=== PATIENT | female | born 1995 | race African-American/Black ===

== ENCOUNTER 2016-06-20 00:33 | Emergency (ER) | payer OTHER ==
[2016-06-20 00:56] VITALS: TEMP 98.6; BMI 24.7
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
[2016-06-20] MEDS ORDERED: IBUPROFEN 600 MG TABLET (FP) PO STA (01:25)
[2016-06-20] MEDS ORDERED: IBUPROFEN 400 MG TABLET (FP) PO ONE (01:29)
[2016-06-20 01:59] LABS: BASOPHIL 0.6 % (0-2.0); EOSINOPHIL 6.6 % (0-4.5); MCH 29.7 pg (25.7-33.7); MCHC 33.2 g/dl (32.0-36.0); MEAN CELL VOLUME 89.3 fl (80-96); MEAN PLT VOLUME 8.4 fl (7.5-11.1); PLATELET COUNT 243 K/MM3 (134-434); WHITE BLOOD COUNT 7.4 K/mm3 (4.0-10.0)
[2016-06-20 02:53] VITALS: BP 112/76; PULSE 72
[2016-06-20 02:59] LABS: ALBUMIN 3.6 g/dl (3.4-5.0); AMYLASE 82 U/L (25-115); ANION GAP 9 (8-16); CALCIUM 8.2 mg/dL (8.5-10.1); CO2 29 mmol/L (21-32); CREATININE 0.7 mg/dL (0.55-1.02); GLUCOSE,RANDOM 72 mg/dL (74-106); SGOT/AST 9 U/L (15-37); SGPT/ALT 11 U/L (12-78)
[2016-06-20 03:01] LABS: ALK PHOS 78 U/L (45-117); BILIRUBIN,TOTAL 0.4 mg/dL (0.2-1.0); TOT PROT 7.1 g/dl (6.4-8.2)
[2016-06-20 03:04] LABS: TROPONIN I < 0.02 ng/ml (0.00-0.05)
--- NOTE | 2016-06-20 11:33 | EKG ---
Test Reason : Blood Pressure : / mmHG Vent. Rate : 077 BPM Atrial Rate : 077 BPM P-R Int : 146 ms QRS Dur : 074 ms QT Int : 390 ms P-R-T Axes : 057 057 048 degrees QTc Int : 441 ms NORMAL SINUS RHYTHM NORMAL ECG WHEN COMPARED WITH ECG OF 12-NOV-2015 16:35, NO SIGNIFICANT CHANGE WAS FOUND Confirmed by DAVID ORLANDO MD ([id number]) on 06/20/2016 11:33:25 AM Referred By: Confirmed By:DAVID ORLANDO MD
== END 2016-06-20 03:08 | disposition left against medical advice (07) ==
LOC: JER 00:33
DX: Z53.21 Procedure and treatment not carried out due to patient leaving prior to being seen by health care provider (principal); R00.2 Palpitations
CPT/HCPCS: 36415; 80053; 82150; 82550; 83690; 84484; 84703; 85025; 93005; 93010; 99283-25

== ENCOUNTER 2016-06-24 10:34 | Emergency (ER) | payer OTHER ==
[2016-06-24] MEDS ORDERED: CYCLOBENZAPRINE HCL 10 MG TABLET (FP) PO ONE (11:15)
[2016-06-24] MEDS ORDERED: IBUPROFEN 600 MG TABLET (FP) PO ONE ×2 (11:15→11:46)
[2016-06-24 11:21] VITALS: BMI 24.4
[2016-06-24] MEDS ORDERED: CYCLOBENZAPRINE HCL 10 MG TABLET (FP) ONE (11:46)
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
[2016-06-24] MEDS ORDERED: OXYCODONE/APAP 5/325MG COMBO TABLET PO ONE (13:31)
[2016-06-24] MEDS ORDERED: OXYCODONE/APAP 5/325MG COMBO TABLET ONE (13:43)
[2016-06-24 13:50] VITALS: BP 120/61; PULSE 71; TEMP 97.5
== END 2016-06-24 13:50 | disposition home or self-care (01) ==
LOC: JER 10:34
PROC: 2W2HX4Z Dressing of Left Thumb using Bandage (ICD-10-PCS; principal; 2016-06-24)
PROC: 2W2GX4Z Dressing of Right Thumb using Bandage (ICD-10-PCS; 2016-06-24)
DX: S13.4XXA Sprain of ligaments of cervical spine, initial encounter (principal); T23.112A Burn of first degree of left thumb (nail), initial encounter; T23.111A Burn of first degree of right thumb (nail), initial encounter; V43.52XA Car driver injured in collision with other type car in traffic accident, initial encounter; W22.11XA Striking against or struck by driver side automobile airbag, initial encounter; Y92.412 Parkway as the place of occurrence of the external cause; Y93.89 Activity, other specified
CPT/HCPCS: 72050-TC; 99282-25

== ENCOUNTER 2017-02-24 22:26 | Emergency (ER) | payer OTHER ==
[2017-02-24 22:44] VITALS: BP 120/73; PULSE 93; TEMP 98; BMI 26.1
[2017-02-24] MEDS ORDERED: IBUPROFEN 600 MG TABLET (FP) PO ONE ×2 (23:17→23:23)
--- NOTE | 2017-02-24 23:23 | PDOC ---
History of Present Illness <TeddyDayna Marcy - Last Filed: 02/24/17 23:24> - History of Present Illness Initial Comments: 02/24/17 23:27 The patient is a 21 year old female, with no significant past medical history, who presents to the emergency department with headache and blurry vision. Patient states that she was concerned that she had pseudotumor cerebri. She states she is currently recovering from an upper respiratory infection. She says she took Tylenol at 5:00 pm. She states she has nasal congestion. She describes her headache as pressure-like. She states that when she closes her eyes tight and then opens them her vision is blurry. She denies recent fevers, chills, or dizziness. She denies recent nausea, vomit , diarrhea or constipation. She denies recent dysuria, frequency, urgency or hematuria. She denies recent chest pain or shortness of breath. Allergies: NKA Past surgical history: None reported. Social history: Marijuana use. Social EtOH use. Denies recreational drug use. Primary Care Physician: Dr. Ximena Alba <Ruba Velazco - Last Filed: 02/24/17 23:31> - General Chief Complaint: Headache Stated Complaint: HEADACHE/BLURRY VISION Time Seen by Provider: 02/24/17 22:29 Past History - Past Medical History COPD: No Thyroid Disease: No - Reproductive History (#): 1 Spontaneous : 1 - Immunization History Immunization Up to Date: Yes - Suicide/Smoking/Psychosocial Hx Smoking Status: No Smoking History: Never smoked Have you smoked in the past 12 months: Yes Number of Cigarettes Smoked Daily: 3 Information on smoking cessation initiated: No Hx Alcohol Use: No Drug/Substance Use Hx: No Substance Use Type: Marijuana <TeddyFranvenkat Vidal - Last Filed: 02/24/17 23:24> <Ruba Velazco - Last Filed: 02/24/17 23:31> - Past Medical History Allergies/Adverse Reactions: Allergies Allergy/AdvReac Type Severity Reaction Status Date / Time No Known Allergies Allergy Verified 02/24/17 22:40 Home Medications: Ambulatory Orders Cyclobenzaprine HCl [Flexeril 10 mg] 10 mg PO BID PRN #10 tablet 06/24/16 Ibuprofen [Motrin -] 600 mg PO TID PRN #21 tablet 06/24/16 Oxycodone HCl/Acetaminophen [Percocet 5-325 mg Tablet] 1 - 2 tab PO Q6H PRN #12 tab MDD 4 06/24/16 Silver Sulfadiazine 1% Top Cr [Silvadene -] 1 applic TP BID #1 jar 06/24/16 Azithromycin [Zithromax -] 250 mg PO UTDICT #6 tab 02/24/17 Ibuprofen [Motrin -] 600 mg PO TID PRN #21 tablet 02/24/17 Phenylephrine HCl [Nasal Decongestant PE] 10 mg PO DAILY #10 tablet 02/24/17 Review of Systems - Review of Systems Comments:: 02/24/17 23:30 CONSTITUTIONAL: Absent: fever, chills, diaphoresis, generalized weakness, malaise, loss of appetite HEENT: Present: nasal congestion, blurry vision. Absent: rhinorrhea, throat pain, throat swelling, difficulty swallowing, mouth swelling, ear pain, eye pain, CARDIOVASCULAR: Absent: chest pain, syncope, palpitations, irregular heart rate, lightheadedness , peripheral edema RESPIRATORY: Absent: cough, shortness of breath, dyspnea with exertion, orthopnea, wheezing, stridor, hemoptysis GASTROINTESTINAL: Absent: abdominal pain, abdominal distension, nausea, vomiting, diarrhea, constipation, melena, hematochezia GENITOURINARY: Absent: dysuria, frequency, urgency, hesitancy, hematuria, flank pain, genital pain MUSCULOSKELETAL: Absent: myalgia, arthralgia, joint swelling SKIN: Absent: rash, itching, pallor HEMATOLOGIC/IMMUNOLOGIC: Absent: easy bleeding, easy bruising, lymphadenopathy, frequent infections ENDOCRINE: Absent: unexplained weight gain, unexplained weight loss, heat intolerance, cold intolerance NEUROLOGIC: Present: pressure-like headache Absent: focal weakness or paresthesias, dizziness, unsteady gait, seizure, mental status changes, bladder or bowel incontinence PSYCHIATRIC: Absent: anxiety, depression, suicidal or homicidal ideation, hallucinations. <Ruba Velazco - Last Filed: 02/24/17 23:31> *Physical Exam - Vital Signs Last Vital Signs Temp Pulse Resp BP Pulse Ox 98 F 93 H 18 120/73 100 02/24/17 22:30 02/24/17 22:30 02/24/17 22:30 02/24/17 22:30 02/24/17 22:30 <Dayna Espinal - Last Filed: 02/24/17 23:24> - Vital Signs Last Vital Signs Temp Pulse Resp BP Pulse Ox 98 F 93 H 18 120/73 100 02/24/17 22:30 02/24/17 22:30 02/24/17 22:30 02/24/17 22:30 02/24/17 22:30 - Physical Exam Comments: 02/24/17 23:30 GENERAL: Well developed, well nourished. Awake and alert. No acute distress. HEENT: Normocephalic, atraumatic. PERRLA, EOMI. No conjunctival pallor. Sclera are non- icteric. Moist mucous membranes. Oropharynx is clear. No field cuts.No diplopia NECK: Supple. Full ROM. No neck pain No Nuchal rigidity No JVD. Carotid pulses 2 + and symmetric, without bruits. No thyromegaly. No lymphadenopathy. CARDIOVASCULAR: Regular rate and rhythm. No murmurs, rubs, or gallops. Distal pulses are 2+ and symmetric. PULMONARY: No evidence of respiratory distress. Lungs clear to auscultation bilaterally. No wheezing, rales or rhonchi. ABDOMINAL: Soft. Non-tender. Non-distended. No rebound or guarding. No organomegaly. Normoactive bowel sounds. MUSCULOSKELETAL Normal range of motion at all joints. No bony deformities or tenderness. No CVA tenderness. EXTREMITIES: No cyanosis. No clubbing. No edema. No calf tenderness. SKIN: Warm and dry. Normal capillary refill. No rashes. No jaundice. NEUROLOGICAL: NIHSS - 0. Alert, awake, appropriate. Cranial nerves 2-12 intact. No deficits to light touch and temperature in face, upper extremities and lower extremities. No motor deficits in the in face, upper extremities and lower extremities. Normoreflexic in the upper and lower extremities. Normal speech. Toes are down-going bilaterally. Gait is normal without ataxia. PSYCHIATRIC: Cooperative. Good eye contact. Appropriate mood and affect. <Ruba Velazco - Last Filed: 02/24/17 23:31> ED Treatment Course - Medications Given in the ED: ED Medications Discontinued Medications Generic Name Dose Route Start Last Admin Trade Name Freq PRN Reason Stop Dose Admin Ibuprofen 600 mg 02/24/17 23:17 02/24/17 23:24 Motrin - PO 12/05/17 23:18 600 mg ONCE ONE Administration <Ruba Velazco - Last Filed: 02/24/17 23:31> *DC/Admit/Observation/Transfer <Dayna Espinal - Last Filed: 02/24/17 23:24> - Attestations Scribe Attestion: 02/24/17 23:31 Documentation prepared by Ruba Velazco, acting as medical office secretary for Dayna Espinal MD. <Ruba Velazco - Last Filed: 02/24/17 23:31> Diagnosis at time of Disposition: Nasal congestion Headache Qualifiers: Headache type: tension-type Headache chronicity pattern: acute headache Intractability: not intractable Qualified Code(s): G44.209 - Tension-type headache, unspecified, not intractable - Discharge Dispostion Disposition: HOME Condition at time of disposition: Stable - Prescriptions Prescriptions: Azithromycin [Zithromax -] 250 mg PO UTDICT #6 tab Ibuprofen [Motrin -] 600 mg PO TID PRN #21 tablet PRN Reason: Headache Phenylephrine HCl [Nasal Decongestant PE] 10 mg PO DAILY #10 tablet - Patient Instructions Printed Discharge Instructions: DI for Hormonal and Tension Headaches, DI for Nasal Congestion Additional Instructions: [facility] picker[facility]
== END 2017-02-24 23:54 | disposition home or self-care (01) ==
LOC: JER 22:26
DX: R09.81 Nasal congestion (principal); G44.209 Tension-type headache, unspecified, not intractable; Z72.0 Tobacco use
CPT/HCPCS: 99281-25

== ENCOUNTER 2018-02-07 22:17 | Emergency (ER) | payer OTHER ==
[2018-02-07 22:27] VITALS: TEMP 99; BMI 25.9
--- NOTE | 2018-02-07 22:38 | PDOC ---
History of Present Illness - General Chief Complaint: Pain Stated Complaint: LOWER BACK PAIN/NAUSEA Time Seen by Provider: 02/07/18 22:38 History Source: Patient Exam Limitations: No Limitations - History of Present Illness Initial Comments: 02/07/18 22:57 22 yo F with no pmhx presents to the emergency department with bilateral lower back pain for the last 2 days. Per the patient, it came on suddenly ( denies inciting event) and has been on and off pain with today being the worse today. She states the pain is sharp, non radiating, 7/10, with no relief using midol. She states she missed her period this month with her LMP 01/08/2018 and states she is regular and was sexually active last month without contraceptive use. Endorses the following: nausea/vomiting (3x episodes, watery - no hematemesis), generalized weakness, dehydration, increased urinary frequency, cough (cold ssx last 4 days). Denies the following: fevers/chills, headaches, visual changes, SOB, chest pain, abdominal pain, dysuria, hematuria, diarrhea, hematochezia, traumatic falls, needle punctures in skin, vaginal bleeding, vaginal discharge, and leg pain/swelling Pmhx: Refer to above Shx: None OBGYN: vaginal delivery 2014 without complications term. loss in 2011 Meds: None Allergies: NKDA Social: Denies tobacco and alcohol. Endorses using MJ (last use today) Past History - Past Medical History Allergies/Adverse Reactions: Allergies Allergy/AdvReac Type Severity Reaction Status Date / Time No Known Allergies Allergy Verified 02/07/18 22:24 Home Medications: Ambulatory Orders Nitrofurantoin Monohyd/M-Cryst [Macrobid -] 100 mg PO BID #14 capsule 02/08/18 COPD: No Thyroid Disease: No - Reproductive History (#): 1 Spontaneous : 1 - Immunization History Immunization Up to Date: Yes - Suicide/Smoking/Psychosocial Hx Smoking Status: No Smoking History: Never smoked Have you smoked in the past 12 months: No Number of Cigarettes Smoked Daily: 3 Information on smoking cessation initiated: No Hx Alcohol Use: No Drug/Substance Use Hx: No Substance Use Type: Marijuana Review of Systems - Review of Systems Able to Perform ROS?: Yes Is the patient limited Divehi proficient: No Constitutional: Yes: Weakness. No: Chills, Diaphoresis, Fever HEENTM: No: Recent change in vision, Nose Pain, Throat Pain, Throat Swelling, Mouth Pain Respiratory: Yes: Cough Cardiac (ROS): No: Chest Pain, Lightheadedness, Palpitations, Syncope, Chest Tightness ABD/GI: Yes: Nausea, Vomiting. No: Constipated, Diarrhea, Poor Appetite, Rectal Bleeding, Tarry Stools : Yes: Frequency. No: Burning, Dysuria, Discharge, Hematuria Musculoskeletal: Yes: Back Pain Integumentary: No: Lesions, Pruritus, Rash Neurological: Yes: Weakness. No: Headache, Numbness, Paresthesia, Tremors, Ataxia Psychiatric: No: Stressors Endocrine: No: Unexplained Weight Gain Hematologic/Lymphatic: No: Anemia *Physical Exam - Vital Signs Last Vital Signs Temp Pulse Resp BP Pulse Ox 99.0 F 117 H 16 125/81 100 02/07/18 22:19 02/07/18 22:19 02/07/18 22:19 02/07/18 22:19 02/07/18 22:19 - Physical Exam General Appearance: Yes: Nourished, Appropriately Dressed, Other (rocking back and forth) HEENT: positive: EOMI, BRIGHT, Normal Voice Neck: positive: Trachea midline. negative: Lymphadenopathy (R), Lymphadenopathy (L) Respiratory/Chest: positive: Lungs Clear, Normal Breath Sounds. negative: Chest Tender, Respiratory Distress, Accessory Muscle Use Cardiovascular: positive: Regular Rhythm, S1, S2, Tachycardia. negative: Systolic Murmur Gastrointestinal/Abdominal: positive: Normal Bowel Sounds, Flat, Soft. negative : Tender, Rebound, Tenderness, Hernia, Mass Musculoskeletal: negative: CVA Tenderness, CVA Tenderness (R), CVA Tenderness (L ) Extremity: positive: Normal Capillary Refill, Normal Inspection, Normal Range of Motion. negative: Tender Integumentary: positive: Normal Color, Dry, Warm Neurologic: positive: Fully Oriented, Alert, Normal Mood/Affect, Normal Response , Motor Strength 5/5. negative: Sensory Deficit ED Treatment Course - LABORATORY CBC & Chemistry Diagram: 02/07/18 23:11 02/07/18 23:11 Medical Decision Making - Medical Decision Making 02/07/18 23:10 22 yo F with no pmhx presents to the emergency department with bilateral lower back pain for the last 2 days. Per the patient, it came on suddenly ( denies inciting event) and has been on and off pain with today being the worse today. Initial vitals: Initial Vital Signs Temp Pulse Resp BP Pulse Ox 99.0 F 117 H 16 125/81 100 02/07/18 22:19 02/07/18 22:19 02/07/18 22:19 02/07/18 22:19 02/07/18 22:19 Work up: ddx: ectopic , muscular strain, UTI, nephrolithiasis, pyelo labs ordered: cbc, cmp, UA, beta hcg, urine culture, pt/inr/aptt, type and screen. treatment: 1 liter NS, 1 g of tyenol (IV), and 4 mg zofran Laboratory Tests 02/07/18 02/07/18 02/07/18 23:05 23:11 23:11 WBC 7.4 RBC 4.83 Hgb 14.4 Hct 42.8 D MCV 88.6 MCH 29.9 MCHC 33.7 RDW 13.9 Plt Count 283 MPV 8.3 Absolute Neuts (auto) 6.1 Neutrophils % 82.3 D Lymphocytes % 7.9 L D Monocytes % 7.0 Eosinophils % 2.2 Basophils % 0.6 Nucleated RBC % 0 PT with INR INR PTT (Actin FS) Sodium 138 Potassium 3.6 Chloride 103 Carbon Dioxide 26 Anion Gap 9 BUN 11 Creatinine 0.7 Creat Clearance w eGFR > 60 Random Glucose 89 Calcium 9.3 Total Bilirubin 1.5 H AST 12 L ALT 16 Alkaline Phosphatase 79 Total Protein 8.6 H Albumin 4.4 Beta HCG, Quant < 1.0 Urine Color Yellow Urine Appearance Clear Urine pH 5.0 Ur Specific [place] 1.025 Urine Protein Negative Urine Glucose (UA) Negative Urine Ketones Trace H Urine Blood Negative Urine Nitrite Negative Urine Bilirubin Negative Urine Urobilinogen Negative Ur Leukocyte Esterase 1+ H Urine WBC (Auto) 2 Urine RBC (Auto) 4 Ur Epithelial Cells Rare Urine Bacteria Rare Hyaline Casts 2 Urine Mucus Few Blood Type Antibody Screen 02/07/18 02/07/18 02/07/18 23:11 23:11 23:40 WBC RBC Hgb Hct MCV MCH MCHC RDW Plt Count MPV Absolute Neuts (auto) Neutrophils % Lymphocytes % Monocytes % Eosinophils % Basophils % Nucleated RBC % PT with INR 13.70 H INR 1.16 H PTT (Actin FS) 33.9 Sodium Potassium Chloride Carbon Dioxide Anion Gap BUN Creatinine Creat Clearance w eGFR Random Glucose Calcium Total Bilirubin AST ALT Alkaline Phosphatase Total Protein Albumin Beta HCG, Quant Urine Color Urine Appearance Urine pH Ur Specific [place] Urine Protein Urine Glucose (UA) Urine Ketones Urine Blood Urine Nitrite Urine Bilirubin Urine Urobilinogen Ur Leukocyte Esterase Urine WBC (Auto) Urine RBC (Auto) Ur Epithelial Cells Urine Bacteria Hyaline Casts Urine Mucus Blood Type O NEGATIVE O NEGATIVE Antibody Screen Negative Bilirubin was elevated at 1.5, but previous lab results show that she has been at this level multiple times before in the past. [facility] [place] . The UA showed a UTI. The patient was given an outpatient prescription of macrobid. At the time of reassessment, the patient stated she felt better and would like to go home. We went over her labs and she agreed to have follow up with her PMD. Dispo: Discharge *DC/Admit/Observation/Transfer Diagnosis at time of Disposition: Low back pain Qualifiers: Chronicity: unspecified Back pain laterality: bilateral Sciatica presence: unspecified whether sciatica present Qualified Code(s): M54.5 - Low back pain UTI (urinary tract infection) Qualifiers: Urinary tract infection type: site unspecified Hematuria presence: without hematuria Qualified Code(s): N39.0 - Urinary tract infection, site not specified - Discharge Dispostion Disposition: HOME Decision to Admit order: No - Prescriptions Prescriptions: Nitrofurantoin Monohyd/M-Cryst [Macrobid -] 100 mg PO BID #14 capsule - Referrals Referrals: Ximena Alba [Primary Care Provider] - - Patient Instructions Printed Discharge Instructions: DI for Urinary Tract Infection (UTI) Additional Instructions: You were seen in the emergency department for the evaluation of your lower back pain. Your labs indicate that you have a urinary tract infection. Please take the antibiotics as prescribed. Please follow up with your primary medical doctor within 72 hours after discharge. Please return to the emergency department if you have worsening symptoms or new concerning symptoms such as fever, chills, migration of pain, and blood in the urine. Thank you. - Post Discharge Activity
--- NOTE | 2018-02-07 22:48 | PDOC ---
Attending Attestation - HPI HPI: 02/07/18 23:07 The patient is a 22 year old female, A1, with no significant PMH who presents to the emergency department with bilateral lower back ache for the past 2 days. Patient describes the back ache as sudden onset, sharp, and intermittent, with no events prior to the onset of this back ache. Patient denies any back trauma or heavy lifting. Patient used a cramping relief medication with no relief. Patient is also complaining of urinary frequency, 3 episodes of NBNB vomit, and nonproductive cough. Patients last menstrual period was January 08, and is sexually active. Not on oral contraceptives. The patient denies chest pain, shortness of breath, headache and dizziness. Endorses constipation at baseline but denies fever, chills, nausea, diarrhea. Denies vaginal bleeding, dysuria, urgency and hematuria. Allergies: NKA Past surgical history: None reported. Social history: Smokes marijuana. No reported alcohol or cigarette use. PCP: Dr. Alba - Physicial Exam PE: 02/07/18 23:23 ADULT EXAM GENERAL: Awake, alert, and fully oriented, in no acute distress HEAD: No signs of trauma EYES: PERRLA, EOMI, sclera anicteric, conjunctiva clear ENT: Auricles normal inspection, hearing grossly normal, nares patent, oropharynx clear without exudates. Moist mucosa NECK: Normal ROM, supple, no lymphadenopathy, JVD, or masses LUNGS: Breath sounds equal, clear to auscultation bilaterally. No wheezes, and no crackles HEART: Regular rate and rhythm, normal S1 and S2, no murmurs, rubs or gallops ABDOMEN: Soft, nontender, normoactive bowel sounds. No guarding, no rebound. No masses EXTREMITIES: Normal range of motion, no edema. No clubbing or cyanosis. No cords, erythema, or tenderness NEUROLOGICAL: Cranial nerves II through XII grossly intact. Normal speech, normal gait SKIN: Warm, Dry, normal turgor, no rashes or lesions noted. <Flakita Torres - Last Filed: 02/07/18 23:23> - Resident Resident Name: Judd Rondon - ED Attending Attestation I have performed the following: I have examined & evaluated the patient, The case was reviewed & discussed with the resident, I agree w/resident's findings & plan - Medical Decision Making 02/07/18 23:04 Pt is tachycardic; she will be hydrated and treated with analgesics. She has low back pain. 02/08/18 00:42 Pt's labs are normal. She is not . She was hydrated. She states that she has chronic constipation. Pt will be treated for an early UTI. <Krupa Michael - Last Filed: 02/08/18 00:43>
[2018-02-07] MEDS ORDERED: ACETAMINOPHEN 1000 MG/100 ML VIAL (NON FORMULARY) IVPB ONE (22:52)
[2018-02-07] MEDS ORDERED: SODIUM CHLORIDE 1,000 ML IV STA (22:54)
[2018-02-07] MEDS ORDERED: ONDANSETRON 4 MG/2 ML VIAL IVPUSH ONE (23:11)
[2018-02-07 23:18] LABS: BASO % 0.6 % (0-2.0); EOS % 2.2 % (0-4.5); HEMATOCRIT 42.8 % (32.4-45.2); HEMOGLOBIN 14.4 GM/dL (10.7-15.3); LYMPH % 7.9 % (8-40); MCH 29.9 pg (25.7-33.7); MCHC 33.7 g/dl (32.0-36.0); MEAN CELL VOLUME 88.6 fl (80-96); MEAN PLT VOLUME 8.3 fl (7.5-11.1); NEUT % 82.3 % (42.8-82.8); PLATELET COUNT 283 K/MM3 (134-434); RBC 4.83 M/mm3 (3.60-5.2); RDW 13.9 % (11.6-15.6); WHITE BLOOD COUNT 7.4 K/mm3 (4.0-10.0)
[2018-02-07 23:24] LABS: URINE APPEARANCE CLEAR; URINE BILIRUBIN NEGATIVE (<2.0 mg/dL); URINE COLOR YELLOW; URINE GLUCOSE (UA) NEGATIVE (NEGATIVE); URINE KETONE TRACE (NEGATIVE); URINE LEUK ESTERASE 1+ (NEGATIVE); URINE NITRITE NEGATIVE (NEGATIVE); URINE PROTEIN NEGATIVE (NEGATIVE); URINE UROBILINOGEN NEGATIVE mg/dL (0.2-1.0)
[2018-02-07 23:28] LABS: EPI CELLS RARE /HPF (FEW); URINE BACTERIA RARE /hpf (NONE SEEN); URINE HYALINE CAST 2 /lpf; URINE MUCUS FEW
[2018-02-07 23:29] LABS: INR 1.16 (0.83-1.09); PROTHROMBIN TIME (PATIENT) 13.7 SEC (9.7-13.0)
[2018-02-07 23:31] LABS: ACTIVATED PTT 33.9 SECONDS (25.2-36.5)
[2018-02-07 23:40] LABS: ALBUMIN 4.4 g/dl (3.4-5.0); ALK PHOS 79 U/L (45-117); ANION GAP 9 MMOL/L (8-16); BILIRUBIN,TOTAL 1.5 mg/dL (0.2-1); BLOOD UREA NITROGEN 11 mg/dL (7-18); CALCIUM 9.3 mg/dL (8.5-10.1); CHLORIDE 103 mmol/L (98-107); CO2 26 mmol/L (21-32); CREATININE 0.7 mg/dL (0.55-1.3); GLUCOSE,RANDOM 89 mg/dL (74-106); POTASSIUM 3.6 mmol/L (3.5-5.1); SGOT/AST 12 U/L (15-37); SGPT/ALT 16 U/L (13-61); SODIUM 138 mmol/L (136-145); TOT PROT 8.6 g/dl (6.4-8.2)
[2018-02-08] MEDS ORDERED: NITROFURANTOIN MACROCRYSTAL 50 MG CAPSULE (FP) PO SCH (00:45)
[2018-02-08 00:54] VITALS: BP 128/74; PULSE 88
== END 2018-02-08 00:54 | disposition home or self-care (01) ==
LOC: JER 22:17
PROC: 3E0337Z Introduction of Electrolytic and Water Balance Substance into Peripheral Vein, Percutaneous Approach (ICD-10-PCS; principal; 2018-02-07)
PROC: 3E033NZ Introduction of Analgesics, Hypnotics, Sedatives into Peripheral Vein, Percutaneous Approach (ICD-10-PCS; 2018-02-07)
PROC: 3E033GC Introduction of Other Therapeutic Substance into Peripheral Vein, Percutaneous Approach (ICD-10-PCS; 2018-02-07)
DX: N39.0 Urinary tract infection, site not specified (principal)
CPT/HCPCS: 36415; 80053; 81003; 81015; 84702; 85025; 85610; 85730; 86850; 86900; 86901; 87086; 96361; 96374; 96375; 99283-25; J0131; J7030